=== PATIENT | male | born 1985 | race Caucasian/White ===

== ENCOUNTER 2017-06-04 12:55 | Emergency (ER) | payer OTHER ==
[~2017-06-04] VITALS: Ht 177.8 cm; Wt 90.7 kg
[~2017-06-04 12:55] MED LIST: ACETAMINOPHEN-1 EAC1 PO; ACULAR1 DROP OS; BLEPH-105 ML OS; CYCLOBENZAPRINE10 MG PO; DOXYCYCLINE HY100 M3 PO; IBUPROFEN600 MG PO; NAPROXEN500 MG PO; PERCOCET 5-3251 EACH PO
[2017-06-04] MEDS ORDERED: DAY TIME COLD-1 EAC1 PO (16:37)
== END 2017-06-04 13:23 | disposition home or self-care (01) ==
LOC: ED 12:55
DX: J34.89 Other specified disorders of nose and nasal sinuses (principal); R51 Headache; F17.200 Nicotine dependence, unspecified, uncomplicated

== ENCOUNTER 2017-06-08 10:36 | Emergency (ER) | payer SELFPAY ==
[~2017-06-08] VITALS: Ht 177.8 cm; Wt 90.7 kg
[~2017-06-08 10:36] MED LIST changes: +DAY TIME COLD-1 EAC1 PO
== END 2017-06-08 11:26 | disposition home or self-care (01) ==
LOC: ED 10:36
DX: R51 Headache (principal)

== ENCOUNTER 2017-07-17 12:38 | Emergency (ER) | payer SELFPAY ==
[~2017-07-17] VITALS: Ht 177.8 cm; Wt 93.9 kg
[2017-07-17] MEDS ORDERED: IBUPROFEN200 MG PO (13:07)
== END 2017-07-17 13:10 | disposition home or self-care (01) ==
LOC: ED 12:38
DX: R22.0 Localized swelling, mass and lump, head (principal); K08.89 Other specified disorders of teeth and supporting structures

== ENCOUNTER 2017-10-13 09:05 | Emergency (ER) | payer MEDICAID ==
[~2017-10-13] VITALS: Ht 177.8 cm; Wt 93.9 kg
[~2017-10-13 09:05] MED LIST changes: +IBUPROFEN200 MG PO
== END 2017-10-13 10:31 | disposition home or self-care (01) ==
LOC: ED 09:05
DX: S63.602A Unspecified sprain of left thumb, initial encounter (principal); F17.200 Nicotine dependence, unspecified, uncomplicated; X58.XXXA Exposure to other specified factors, initial encounter; Y93.89 Activity, other specified
CPT/HCPCS: 73110; 73130; 99283

== ENCOUNTER 2019-07-27 19:39 | Emergency (ER) | payer SELFPAY ==
[~2019-07-27] VITALS: Ht 177.8 cm; Wt 93.9 kg
[~2019-07-27 19:39] MED LIST changes: +DELTASONE20 MG PO; +PEPCID40 MG PO; +ZYRTEC10 MG PO
--- OUTSIDE RECORDS SUMMARY | 2019-07-27 19:42 | XMS ---
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 Care History Medical/Surgical 10/16/2017 [facility] - PATIENT HAS NOT SEEN PCP AND OR WALK IN CLINIC SINCE JUNE 2017. PLEASE REFER PATIENT TO WALK IN CLINIC. - Patient is currently established with [facility]. If patient is seen in the ED during business hours. Please contact CHWs at [facility]. Care Recommendation: This patient has had 5 or more Emergency Department visits in the last 12 months.\T\nbsp; Patient requires education on the scope and purpose of the ED as an acute care provider not a Primary Care Provider and should not be utilized for chronic conditions.\T\nbsp; These are guidelines and the provider should exercise clinical judgment when providing care. E.D. VISIT COUNT (12 MO.) 1 [facility] TOTAL [facility] NOTE: Visits indicate total known visits. ED/UCC VISIT TRACKING (12 MO.) 07/27/2019 19:[address] [facility] [place] TYPE: Emergency COMPLAINT: - POSS ALLERGIC REACTION INPATIENT VISIT TRACKING (12 MO.) No inpatient visits to display in this time frame [id number]
[2019-07-27] MEDS ORDERED: EPIPEN 2-P0.3 MG/0.3 IM (22:14)
== END 2019-07-27 22:34 | disposition home or self-care (01) ==
LOC: ED 19:39
DX: T78.2XXA Anaphylactic shock, unspecified, initial encounter (principal); G43.909 Migraine, unspecified, not intractable, without status migrainosus; F17.200 Nicotine dependence, unspecified, uncomplicated; Z79.899 Other long term (current) drug therapy
CPT/HCPCS: 96374; 96375; 99284-25; J0171; J1200; J2930

== ENCOUNTER 2020-04-04 19:38 | Emergency (ER) | payer OTHER ==
[~2020-04-04] VITALS: Ht 177.8 cm; Wt 92.5 kg
[~2020-04-04 19:38] MED LIST changes: +EPIPEN 2-P0.3 MG/0.3 IM; +PREDNISONE20 MG PO
[2020-04-04] MEDS ORDERED: CETIRIZINE HCL10 MG PO (21:12)
== END 2020-04-04 21:26 | disposition home or self-care (01) ==
LOC: ED 19:38
DX: L50.0 Allergic urticaria (principal); F17.200 Nicotine dependence, unspecified, uncomplicated
CPT/HCPCS: 96374; 96375; 99283-25; J1200; J7030

== ENCOUNTER 2020-04-13 20:24 | Emergency (ER) | payer OTHER ==
[~2020-04-13] VITALS: Ht 177.8 cm; Wt 95.3 kg
[~2020-04-13 20:24] MED LIST changes: +CETIRIZINE HCL10 MG PO
--- OUTSIDE RECORDS SUMMARY | 2020-04-13 20:26 | XMS ---
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 Care History Medical/Surgical 10/16/2017 [facility] - PATIENT HAS NOT SEEN PCP AND OR WALK IN CLINIC SINCE JUNE 2017. PLEASE REFER PATIENT TO WALK IN CLINIC. - Patient is currently established with [facility]. If patient is seen in the ED during business hours. Please contact CHWs at [facility]. Care Recommendation: This patient has had 5 [...] providing care. E.D. VISIT COUNT (12 MO.) 4 [facility] TOTAL 4 NOTE: Visits indicate total known visits. ED/UCC VISIT TRACKING (12 MO.) 04/13/2020 20:24 [facility] [place] TYPE: Emergency COMPLAINT: - THROAT PROBLEM 04/04/2020 19:39 [facility] [place] TYPE: Emergency COMPLAINT: - ALLERGIC REACTION DIAGNOSES: - Nicotine dependence, unspecified, uncomplicated - Allergic urticaria 01/30/2020 14:19 [facility] [place] TYPE: Emergency COMPLAINT: - SEVERE HEADACHE, VOMITING DIAGNOSES: - Cervicalgia - Radiculopathy, cervical region - Nicotine dependence, unspecified, uncomplicated 07/27/2019 19:40 [facility] [place] TYPE: Emergency COMPLAINT: - POSS ALLERGIC REACTION DIAGNOSES: - Migraine, unspecified, not intractable, without status migrainosus - Anaphylactic shock, unspecified, initial encounter - Rash and other nonspecific skin eruption - 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
== END 2020-04-13 22:09 | disposition home or self-care (01) ==
LOC: ED 20:24
DX: R09.89 Other specified symptoms and signs involving the circulatory and respiratory systems (principal); G43.909 Migraine, unspecified, not intractable, without status migrainosus; F17.200 Nicotine dependence, unspecified, uncomplicated; Z79.899 Other long term (current) drug therapy
CPT/HCPCS: 99283

== ENCOUNTER 2020-04-30 20:25 | Emergency (ER) | payer OTHER ==
[~2020-04-30] VITALS: Ht 177.8 cm; Wt 95.3 kg
--- OUTSIDE RECORDS SUMMARY | 2020-04-30 20:28 | XMS ---
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 Care History Medical/Surgical 04/14/2020 [facility] - CHW CONTACTED PATIENT- DISCUSSED ED UTILIZATION AND ESTABLISHING CARE WITH A PROVIDER. - PATIENT STATED HE IS STARTING A NEW JOB SO HE WOULD LIKE TO HAVE A TEXT MESSAGE SENT WITH [facility] CONTACT NUMBER AND HE WILL SET UP WITH A NEW PROVIDER AT THAT LOCATION. - CHW SENT [facility] CONTACT NUMBER FOR ESTABLISHING CARE APT. 10/16/2017 [facility] - PATIENT HAS NOT SEEN PCP AND OR WALK IN CLINIC SINCE JUNE 2017. PLEASE REFER PATIENT TO WALK IN CLINIC. - Patient is currently established with [facility]. If patient is seen in the ED during business hours. Please contact CHWs at [facility]. Care Recommendation: This patient has had [...] providing care. E.D. VISIT COUNT (12 MO.) [address] [facility] TOTAL 5 NOTE: Visits indicate total known visits. ED/UCC VISIT TRACKING (12 MO.) 04/30/2020 20:25 [facility] [place] TYPE: Emergency COMPLAINT: - ALLERGIC REACTION 04/13/2020 20:24 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
[2020-04-30] MEDS ORDERED: EPINEPHRIN0.3 MG/0.3 IM (23:00)
[2020-04-30] MEDS ORDERED: PREDNISONE50 MG PO (23:00)
== END 2020-04-30 23:16 | disposition home or self-care (01) ==
LOC: ED 20:25
DX: L50.9 Urticaria, unspecified (principal); R22.0 Localized swelling, mass and lump, head; G43.909 Migraine, unspecified, not intractable, without status migrainosus; F17.200 Nicotine dependence, unspecified, uncomplicated; Z79.899 Other long term (current) drug therapy
CPT/HCPCS: 96374; 96375; 99283-25; J0171; J1200; J2930

== ENCOUNTER 2020-11-01 17:39 | Emergency (ER) | payer OTHER ==
[~2020-11-01] VITALS: Ht 177.8 cm; Wt 95.2 kg
[~2020-11-01 17:39] MED LIST changes: +EPINEPHRIN0.3 MG/0.3 IM; +PREDNISONE50 MG PO
[2020-11-01] MEDS ORDERED: HYDROXYZINE HCL25 MG PO (17:47)
== END 2020-11-01 18:53 | disposition home or self-care (01) ==
LOC: ED 17:39
DX: L50.0 Allergic urticaria (principal); G43.909 Migraine, unspecified, not intractable, without status migrainosus; F17.200 Nicotine dependence, unspecified, uncomplicated; Z79.899 Other long term (current) drug therapy
CPT/HCPCS: 99284; J7512

== ENCOUNTER 2020-11-15 06:13 | Emergency (ER) | payer OTHER ==
[~2020-11-15] VITALS: Ht 177.8 cm; Wt 93.0 kg
[~2020-11-15 06:13] MED LIST changes: +HYDROXYZINE HCL25 MG PO
--- OUTSIDE RECORDS SUMMARY | 2020-11-15 06:20 | XMS ---
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 Care History Medical/Surgical 04/14/2020 [facility] - CHW CONTACTED PATIENT- DISCUSSED ED UTILIZATION AND ESTABLISHING CARE WITH A PROVIDER. - PATIENT STATED HE IS STARTING A NEW JOB SO HE WOULD LIKE TO HAVE A TEXT MESSAGE [facility]ENT [facility] CONTACT [facility] AND HE WILL SET UP WITH A NEW PROVIDER AT THAT LOCATION. - CHW SENT [facility] CONTACT NUMBER FOR ESTABLISHING CARE APT. 10/16/2017 [facility] - PATIENT HAS NOT SEEN PCP AND OR WALK IN CLINIC SINCE JUNE 2017. PLEASE REFER PATIENT TO WALK IN CLINIC. - Patient is currently established with [facility]. If patient is seen in the ED during business hours. Please contact CHWs at [facility]. Care Recommendation: This patient has had 5 [...] providing care. E.D. VISIT COUNT (12 MO.) 6 [facility] TOTAL 6 NOTE: Visits indicate total known visits. ED/C VISIT TRACKING (12 MO.) 11/15/2020 06:13 [facility] [place] TYPE: Emergency COMPLAINT: - LEFT WRIST INJ 11/01/2020 17:40 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 [place] TYPE: Emergency COMPLAINT: - THROAT PROBLEM DIAGNOSES: - Nicotine dependence, unspecified, uncomplicated - Migraine, unspecified, not intractable, without status migrainosus - Other specified symptoms and signs involving the circulatory and respiratory systems - Other mcc (current) drug therapy 04/04/2020 19:39 [facility] [place] TYPE: Emergency COMPLAINT: - ALLERGIC REACTION DIAGNOSES: - Nicotine dependence, unspecified, uncomplicated - Allergic urticaria 01/30/2020 14:19 [facility] [place] TYPE: Emergency COMPLAINT: - SEVERE HEADACHE, VOMITING DIAGNOSES: - Cervicalgia - Radiculopathy, cervical region - Nicotine dependence, unspecified, uncomplicated INPATIENT VISIT TRACKING (12 MO.) No inpatient visits to display in this time frame [id number]
== END 2020-11-15 06:56 | disposition home or self-care (01) ==
LOC: ED 06:13
DX: M25.432 Effusion, left wrist (principal); G43.909 Migraine, unspecified, not intractable, without status migrainosus; F17.200 Nicotine dependence, unspecified, uncomplicated; Z79.899 Other long term (current) drug therapy
CPT/HCPCS: 29125; 73110; 99283-25

== ENCOUNTER 2020-12-24 11:51 | Emergency (ER) | payer OTHER ==
[~2020-12-24] VITALS: Ht 177.8 cm; Wt 93.0 kg
== END 2020-12-24 14:53 | disposition home or self-care (01) ==
LOC: ED 11:51
DX: U07.1 COVID-19 (principal); M54.9 Dorsalgia, unspecified; F17.200 Nicotine dependence, unspecified, uncomplicated
CPT/HCPCS: 71045; 99283-25

== ENCOUNTER 2021-01-19 15:57 | Emergency (ER) | payer OTHER ==
[~2021-01-19] VITALS: Ht 177.8 cm; Wt 94.8 kg
--- OUTSIDE RECORDS SUMMARY | 2021-01-19 16:04 | XMS ---
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 Care History Medical/Surgical 04/14/2020 [facility] - CHW CONTACTED PATIENT- DISCUSSED ED UTILIZATION AND ESTABLISHING CARE WITH A PROVIDER. - PATIENT STATED HE IS STARTING A NEW JOB SO HE WOULD LIKE TO HAVE A TEXT MESSAGE [facility] AND HE WILL SET UP WITH A NEW PROVIDER AT THAT LOCATION. - CHW SENT [facility] CONTACT NUMBER FOR ESTABLISHING CARE APT. 10/16/2017 [facility] - PATIENT HAS NOT SEEN PCP AND OR WALK IN CLINIC SINCE JUNE 2017. PLEASE REFER PATIENT TO WALK IN CLINIC. - Patient is currently established with [facility]. If patient is seen in the ED during business hours. Please contact CHWs at [facility]. Care Recommendation: This patient has [...] providing care. E.D. VISIT COUNT (12 MO.) 8 [facility] TOTAL 8 NOTE: Visits indicate total known visits. ED/C VISIT TRACKING (12 MO.) 01/19/2021 15:58 [facility] [place] TYPE: Emergency COMPLAINT: - THROAT PROBLEM 12/24/2020 11:[address] [facility] [place] TYPE: Emergency COMPLAINT: - R SIDE BACK PAIN DIAGNOSES: - Nicotine dependence, unspecified, uncomplicated - Cough - Dorsalgia, unspecified - COVID-19 11/15/2020 06:[address] [facility] [place] TYPE: Emergency COMPLAINT: - LEFT WRIST INJ DIAGNOSES: - Pain in left wrist - Other mcc (current) drug therapy - Nicotine dependence, unspecified, uncomplicated - Effusion, left wrist - Migraine, unspecified, not intractable, without status migrainosus 11/01/2020 17:[address] [facility] [place] TYPE: Emergency COMPLAINT: - SOB,ALLERGIC REACTION DIAGNOSES: - Shortness of breath - Other mcc (current) drug therapy - Migraine, unspecified, not intractable, without status migrainosus - Nicotine dependence, unspecified, uncomplicated - Allergic urticaria 04/30/2020 20:[address] 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 [place]: [place] COMPLAINT: - THROAT PROBLEM DIAGNOSES: - Nicotine dependence, unspecified, uncomplicated - Migraine, unspecified, not intractable, without status migrainosus - Other specified symptoms and signs involving the circulatory and respiratory systems - Other mcc (current) drug therapy 04/04/2020 19:[address] [facility] [place]: [place] COMPLAINT: - ALLERGIC REACTION DIAGNOSES: - Nicotine dependence, unspecified, uncomplicated - Allergic urticaria 01/30/2020 14:[address] [facility] [place]: [place] COMPLAINT: - SEVERE HEADACHE, VOMITING DIAGNOSES: - Cervicalgia - Radiculopathy, cervical region - Nicotine dependence, unspecified, uncomplicated INPATIENT VISIT TRACKING (12 MO.) No inpatient visits to display in this time frame [id number]
== END 2021-01-19 19:41 | disposition home or self-care (01) ==
LOC: ED 15:57
DX: R59.0 Localized enlarged lymph nodes (principal); F17.200 Nicotine dependence, unspecified, uncomplicated; Z86.16 Personal history of COVID-19; Z79.899 Other long term (current) drug therapy
CPT/HCPCS: 70360; 99283

== ENCOUNTER 2021-12-05 13:02 | Emergency (ER) | payer OTHER ==
[~2021-12-05] VITALS: Ht 177.8 cm; Wt 98.3 kg
[2021-12-05] MEDS ORDERED: SERTRALINE HCL50 MG PO (13:17)
== END 2021-12-05 13:52 | disposition home or self-care (01) ==
LOC: ED 13:02
DX: S41.112A Laceration without foreign body of left upper arm, initial encounter (principal); W22.8XXA Striking against or struck by other objects, initial encounter; G43.909 Migraine, unspecified, not intractable, without status migrainosus; F17.200 Nicotine dependence, unspecified, uncomplicated; Z79.899 Other long term (current) drug therapy
CPT/HCPCS: 12001; 99282-25

== ENCOUNTER 2022-03-25 20:41 | Emergency (ER) | payer OTHER ==
[~2022-03-25] VITALS: Ht 177.8 cm; Wt 97.4 kg
[~2022-03-25 20:41] MED LIST changes: +SERTRALINE HCL50 MG PO
== END 2022-03-25 23:57 | disposition home or self-care (01) ==
LOC: ED 20:41
DX: L50.8 Other urticaria (principal); G43.909 Migraine, unspecified, not intractable, without status migrainosus; F17.200 Nicotine dependence, unspecified, uncomplicated; Z79.899 Other long term (current) drug therapy
CPT/HCPCS: 96374; 96375; 99282-25; J1200; J2405; J2930

== ENCOUNTER 2024-01-03 13:29 | Emergency (ER) | payer OTHER ==
[~2024-01-03] VITALS: Ht 180.3 cm; Wt 96.8 kg
[~2024-01-03 13:29] MED LIST changes: +HYDROCODON-ACE1 EA10 PO; +MOTRIN IB200 MG PO; +NICOTINE1 EAC2 TD; +TYLENOL EXTRA500 MG PO; +VISTARIL25 MG PO
[2024-01-03 15:14] LABS: BILIRUBIN, URINE NEGATIVE (negative); BLOOD/HGB, URINE NEGATIVE (Negative); KETONE, URINE NEGATIVE (Negative); LEUK ESTERASE, URINE NEGATIVE (negative); NITRITE, URINE NEGATIVE (negative)
[2024-01-03] MEDS ORDERED: KETOROLAC TROMETHAMINE 15 MG/ML VIAL IV ONE (15:15)
[2024-01-03 15:44] LABS: BASOPHILS 0.2 % (0-2); EOSINOPHILS 1.2 % (0-6); HEMATOCRIT 46.1 % (35.0-50.0); HEMOGLOBIN 15.8 g/dL (12.0-18.0); LYMPHOCYTES 39.5 % (24-44); MCH 31.4 (27-36); MCHC 34.2 g/dl (30-36); MCV 91.7 fl (81-99); MONOCYTES 7.2 % (0-12); NEUTROPHILS 51.9 % (39-80); PLATELET COUNT 233 K/uL (140-440); RBC 5.02 M/ul (4.3-5.7); RDW 13.9 (10.5-15.0)
[2024-01-03 16:06] LABS: ALBUMIN 4.1 g/dL (3.4-5.0); ALBUMIN/GLOBULIN RATIO 0.98 (1.1-2.4); ANION GAP 12.4 (7-21); BILIRUBIN, TOTAL 0.3 ng/dL (0.2-1.0); BUN/CREATININE RATIO 15.95 (6.0-28.6); CALCIUM 9.9 mg/dL (8.5-10.1); CREATININE, SERUM 0.94 mg/dL (0.70-1.30); POTASSIUM 4.4 mmol/L (3.5-5.1); PROTEIN, TOTAL 8.3 g/dL (6.4-8.2)
[2024-01-03] MEDS ORDERED: METHOCARBAMOL750 MG PO (16:21)
[2024-01-03 16:33] VITALS: BP 138/94
== END 2024-01-03 16:35 | disposition home or self-care (01) ==
LOC: ED 13:29
PROVIDERS: Emergency Medicine
DX: M54.9 Dorsalgia, unspecified (principal); F17.200 Nicotine dependence, unspecified, uncomplicated; Z79.899 Other long term (current) drug therapy
CPT/HCPCS: 36415; 80053; 81003; 85025; 99284

== ENCOUNTER 2024-03-16 16:52 | Emergency (ER) | payer OTHER ==
[~2024-03-16] VITALS: Ht 180.3 cm; Wt 99.9 kg
[~2024-03-16 16:52] MED LIST changes: +METHOCARBAMOL750 MG PO
[2024-03-16] MEDS ORDERED: PREDNISONE20 MG PO (21:38)
[2024-03-16] MEDS ORDERED: predniSONE 20 MG TAB PO ONE (21:45)
[2024-03-16 21:55] VITALS: BP 126/89
== END 2024-03-16 21:58 | disposition home or self-care (01) ==
LOC: ED 16:52
DX: M75.51 Bursitis of right shoulder (principal); F17.200 Nicotine dependence, unspecified, uncomplicated
CPT/HCPCS: 73030; 99283; J7512

== ENCOUNTER 2024-09-03 19:30 | Emergency (ER) | payer OTHER ==
[~2024-09-03] VITALS: Ht 177.8 cm; Wt 95.0 kg
[~2024-09-03 19:30] MED LIST changes: +METHYLPREDNISOLO4 M1 PO; +PEPCID20 MG PO
[2024-09-03] MEDS ORDERED: FAMOTIDINE 20 MG/ 2 ML VIAL IV ONE (19:45)
[2024-09-03] MEDS ORDERED: diphenhydrAMINE HCL 50 MG/ML VIAL IV ONE (19:45)
[2024-09-03] MEDS ORDERED: CETIRIZINE HCL 10 MG TAB PO ONE (19:45)
[2024-09-03] MEDS ORDERED: DEXAMETHASONE SOD PHOS 10 MG/ML VIAL IV ONE (19:45)
[2024-09-03] MEDS ORDERED: ZYRTEC10 MG PO (20:23)
[2024-09-03] MEDS ORDERED: methylPREDNISolone 4 MG HOME.PACK PO ONE (20:30)
[2024-09-03 20:36] VITALS: BP 138/90
== END 2024-09-03 20:38 | disposition home or self-care (01) ==
LOC: ED 19:30
DX: T78.1XXA Other adverse food reactions, not elsewhere classified, initial encounter (principal); I10 Essential (primary) hypertension; G43.909 Migraine, unspecified, not intractable, without status migrainosus; F17.200 Nicotine dependence, unspecified, uncomplicated; Z79.52 Long term (current) use of systemic steroids; Z79.899 Other long term (current) drug therapy
CPT/HCPCS: 96374; 96375; 99282-25; J1100; J1200